=== PATIENT | female | born 1970 | race Two or more races ===

== ENCOUNTER 2017-12-02 00:54 | Emergency (ER) | payer MEDICAID ==
[~2017-12-02] VITALS: Ht 152.4 cm; Wt 70.3 kg
[~2017-12-02 00:54] MED LIST: CIPROFLOXACIN500 M2 ORAL; NAPROSYN500 M1 ORAL; NITROFURANTOIN100 M2 ORAL; NKM; ONDANSETRON ODT4 MG ORAL; PHENAZOPYRIDIN100 MG ORAL
[2017-12-02] MEDS ORDERED: Phenazopyridine 200mg tab ORAL ONE (01:45)
[2017-12-02 02:01] LABS: BILIRUBIN, URINE NEGATIVE (NEGATIVE); GLUCOSE, URINE (UA) NEGATIVE (NEGATIVE); KETONES,URINE NEGATIVE (NEGATIVE); LEUKOCYTE ESTERASE ,URINE 1+ (NEGATIVE); NITRITE,URINE NEGATIVE (NEGATIVE); PH,URINE 5 (4.5-8.0); PROTEIN,URINE 2+ (NEGATIVE); UROBILINOGEN,URINE NORMAL MG/DL (0.0-1.0)
[2017-12-02 02:18] LABS: APPEARANCE,URINE SLIGHTLY CLOUDY; COLOR,URINE YELLOW
[2017-12-02] MEDS ORDERED: CEPHALEXIN500 MG ORAL (02:22)
[2017-12-02] MEDS ORDERED: PHENAZOPYRIDIN200 MG ORAL (02:23)
[2017-12-02] MEDS ORDERED: Cephalexin 500mg cap ORAL ONE (02:30)
[2017-12-02 02:39] VITALS: BP 123/69
--- NOTE | 2017-12-02 04:30 | Emergency Room Report ---
History of Present Illness General Chief Complaint: Female Urogenital Problems Source: Patient Present Illness HPI Patient is a 47-year-old female presented after increased frequency of urination. Patient gradual onset of symptoms. She reports having increased discomfort to the lower abdomen. She denies any flank pain or vomiting. The patient had onset of symptoms for one day. She reports being on her menses. She denies any severe pain at this time. She states that she's had previous history of urinary infections. Denies any vaginal discharge. Allergies: Coded Allergies: No Known Allergies (Unverified , 10/13/13) Patient History Past Medical History: see triage record Last Menstrual Period: 11/30/17 Now: No Reviewed Nursing Documentation: PMH: Agreed; PSxH: Agreed Nursing Documentation-PMH Past Medical History: No History, Except For Hx Gastrointestinal Problems: No - Kidney stones Review of Systems All Other Systems: negative except mentioned in HPI Physical Exam Vital Signs Date Time Temp Pulse Resp B/P (MAP) Pulse Ox O2 Delivery O2 Flow Rate FiO2 12/02/17 01:07 98.4 84 16 123/69 98 Room Air 98.4 Sp02 EP Interpretation: reviewed, normal General Appearance: normal inspection, well appearing, no apparent distress, alert, GCS 15 Head: atraumatic ENT: normal ENT inspection, hearing grossly normal, normal voice Neck: normal inspection, full range of motion, supple, no bony tend Respiratory: normal inspection, lungs clear, normal breath sounds, no respiratory distress, no retraction, no wheezing Cardiovascular #1: regular rate, rhythm, no edema Gastrointestinal: normal inspection, normal bowel sounds, non tender, soft, no guarding, no hernia Genitourinary: no CVA tenderness Musculoskeletal: normal inspection, back normal, normal range of motion Neurologic: normal inspection, alert, responsive, speech normal Psychiatric: normal inspection, judgement/insight normal, mood/affect normal Skin: normal inspection, normal color, no rash Medical Decision Making Diagnostic Impression: Primary Impression: UTI ER Course Patient presented for dysuria. Differential diagnosis included was not limited to appendicitis, urinary tract infection, pelvic inflammatory disease, urethritis, herpes among others.Because of complexity of patient's case laboratory testing and imaging studies were ordered. The patient was given oral antibiotics emergency department. The patient is advised to follow up with primary care doctor in 1-2 days. Patient is advised to return if any worsening condition or if any changes in status that are concerning. This report is dictated with [employer] lead man over all dies in pattern shop software which may occasionally lead to discrepancies related to use of this software. Labs Test 12/02/17 01:17 Urine Color Yellow Urine Appearance Slightly cloudy Urine pH 5 (4.5-8.0) Urine Specific [place] 1.025 (1.005-1.035) Urine Protein 2+ (NEGATIVE) Urine Glucose (UA) Negative (NEGATIVE) Urine Ketones Negative (NEGATIVE) Urine Occult Blood 5+ (NEGATIVE) Urine Nitrite Negative (NEGATIVE) Urine Bilirubin Negative (NEGATIVE) Urine Urobilinogen Normal MG/DL (0.0-1.0) Urine Leukocyte Esterase 1+ (NEGATIVE) Urine RBC 20-30 /HPF (0 - 2) Urine WBC 2-4 /HPF (0 - 2) Urine Squamous Epithelial Cells Many /LPF (NONE/OCC) Urine Calcium Oxalate Crystals Many /LPF (NONE) Urine Bacteria Few /HPF (NONE) Urine HCG, Qualitative Negative (NEGATIVE) Last Vital Signs Date Time Temp Pulse Resp B/P (MAP) Pulse Ox O2 Delivery O2 Flow Rate FiO2 12/02/17 02:39 98.4 16 123/69 98 Room Air 98.4 12/02/17 01:07 84 Status: improved Disposition: HOME, SELF-CARE Condition: Stable Scripts Phenazopyridine Hcl* (PYRIDIUM*) 200 Mg Tablet 200 MG ORAL THREE TIMES A DAY, #14 TAB 0 Refills Prov: Neeraj Cavralho MD 12/02/17 Cephalexin* (KEFLEX*) 500 Mg Capsule 500 MG ORAL EVERY 6 HOURS, #28 CAP Prov: Neeraj Carvalho MD 12/02/17 Referrals: [facility],REFERR[facility] (PCP) Patient Instructions: Urinary Tract Infection Neeraj Carvalho MD Dec 02, 2017 04:30
== END 2017-12-02 02:40 | disposition home or self-care (01) ==
LOC: EMR 01:40
DX: N39.0 Urinary tract infection, site not specified (principal)
CPT/HCPCS: 81003; 81025; 99284

== ENCOUNTER 2018-06-21 09:53 | Emergency (ER) | payer MEDICAID ==
[~2018-06-21] VITALS: Ht 154.9 cm; Wt 72.6 kg
[~2018-06-21 09:53] MED LIST changes: +CEPHALEXIN500 MG ORAL; +PHENAZOPYRIDIN200 MG ORAL
[2018-06-21 10:00] VITALS: BP 124/74
--- NOTE | 2018-06-21 10:00 | NUR ---
ED Nurse Note: PT WALKED IN TO ER TODAY FROM HOME. AOX4. PT C/O EAR PAIN X 1 WEEK AND SAW HER PMD WHO TOLD HER SHE HAS AN EAR INFECTION AND GAVE HER A RX FOR AUMENTIN WHICH PT HAS BEEN TAKING. PT ONGOING EAR PAIN, 09/13, DESPITE BEING COMPLIANT WITH ABX REGIMEN. PT DENIES ANY DISCHARGE OR CHANGES IN HEARING.
[2018-06-21] MEDS ORDERED: DEBROX15 M1 BOTH EARS (10:17)
[2018-06-21 10:26] VITALS: BP 126/72
--- NOTE | 2018-06-21 10:27 | NUR ---
ED Nurse Note: PT SITTING PEACEFULLY IN BED IN NAD. AOX4. PRESCRIPTION AND DISCHARGE PAPERWORK EXPLAINED TO PT. PT VERBALIZES UNDERSTANDING AND DENIES ANY QUESTIONS AT THIS TIME. PRESCRIPTION AND DISCHARGE PAPERWORK GIVEN TO PT AND ID WRISTBAND REMOVED. PT WALKED OUT OF ER WITH STEADY GAIT AND ALL BELONGINGS.
--- NOTE | 2018-06-24 01:31 | Emergency Room Report ---
History of Present Illness General Chief Complaint: Earache Source: Patient Present Illness HPI 47-year-old female presents ED for evaluation. Complaining of right ear pain. Has been going on for 2 weeks. Was initially started on amoxicillin by her PMD but states it was not working so she was started on Augmentin a few days ago. States she is still having some pain. Dull, 5 out of 10, nonradiating. Denies fevers or chills. Denies cough. Denies sore throat. No other aggravating relieving factors. Denies any other associated symptoms Allergies: Coded Allergies: FERROUS SULFATE (Verified Allergy, Unknown, Itching, 06/21/18) Patient History Past Medical History: none Past Surgical History: none Pertinent Family History: none Social History: Denies: smoking, alcohol use, drug use Last Menstrual Period: Now: No : 1 Para: 0 Immunizations: UTD Reviewed Nursing Documentation: PMH: Agreed; PSxH: Agreed Nursing Documentation-PMH Past Medical History: No History, Except For Hx Gastrointestinal Problems: No - Kidney stones Review of Systems All Other Systems: negative except mentioned in HPI Physical Exam Vital Signs Date Time Temp Pulse Resp B/P (MAP) Pulse Ox O2 Delivery O2 Flow Rate FiO2 06/21/18 09:57 98.1 80 18 126/73 97 Room Air Sp02 EP Interpretation: reviewed, normal General Appearance: no apparent distress, alert, GCS 15, non-toxic Head: normocephalic Eyes: bilateral eye normal inspection, bilateral eye PERRL ENT: hearing grossly normal, normal pharynx, no angioedema, normal voice, other - cerumen impaction bilateral TM Neck: full range of motion, supple, no meningismus, supple/symm/no masses Respiratory: normal inspection Cardiovascular #1: normal inspection Gastrointestinal: normal inspection Rectal: deferred Genitourinary: no CVA tenderness Musculoskeletal: normal inspection Neurologic: alert, oriented x3, responsive, motor strength/tone normal, sensory intact, speech normal Psychiatric: normal inspection Skin: normal inspection Lymphatic: normal inspection Medical Decision Making Diagnostic Impression: Primary Impression: Ear pain Qualified Codes: H92.01 - Otalgia, right ear Additional Impression: Cerumen impaction Qualified Codes: H61.23 - Impacted cerumen, bilateral ER Course Hospital Course 47-year-old F presents to ED with pain R ear. no fever. Differential diagnoses include: TM perforation, otitis externa, otitis media Clinical course Patient placed on stretcher. After initial history, physical exam reveals a female in no acute distress. There is significant cerumen impaction in both ears. Unable to adequately visualize TM. Remainder physical exam unremarkable Discussed findings with patient. We will prescribe Debrox. Encouraged patient to continue her Augmentin prescription as directed. She'll follow-up with her PMD Diagnosis - ear pain, cerumen impaction Stable and discharged to home with Rx Carbamide peroxide. continue augmentin as directed. Followup with PMD. Return to ED if symptoms recur or worsen Last Vital Signs Date Time Temp Pulse Resp B/P (MAP) Pulse Ox O2 Delivery O2 Flow Rate FiO2 06/21/18 10:26 98.4 74 17 126/72 99 Room Air Status: improved Disposition: HOME, SELF-CARE Condition: Stable Scripts Carbamide Peroxide (DEBROX) 15 Ml Drops 5 DROP BOTH EARS TWICE A DAY for 4 Days, ML 0 Refills Prov: Jose Gomez MD 06/21/18 Referrals: NON PHYSICIAN (PCP) Patient Instructions: Cerumen Impaction Jose Gomez MD Jun 24, 2018 01:31
== END 2018-06-21 10:55 | disposition home or self-care (01) ==
LOC: EMR 10:55
DX: H92.01 Otalgia, right ear (principal); H61.23 Impacted cerumen, bilateral; Z88.2 Allergy status to sulfonamides
CPT/HCPCS: 99282

== ENCOUNTER 2018-06-27 11:39 | Emergency (ER) | payer MEDICAID ==
[~2018-06-27] VITALS: Ht 154.9 cm; Wt 72.6 kg
[~2018-06-27 11:39] MED LIST changes: +DEBROX15 M1 BOTH EARS
[2018-06-27] MEDS ORDERED: VITAMIN D400 INTLU ORAL (11:49)
--- NOTE | 2018-06-27 11:53 | NUR ---
ED Nurse Note: Pt came into the ER w/ complaints of right earache x 15 days. Rating the pain a 5/10. Non radiating. Pt states that she went to the ER last week and was given eardrops for the wax in her bilateral ears. Pt was also on amoxicillin x 10 days due to the earache. Finished the course of atb yesterday. A + O x4. Ambulatory. Skin warm to touch.
[2018-06-27 11:55] VITALS: BP 125/81
--- NOTE | 2018-06-27 12:31 | Emergency Room Report ---
History of Present Illness General Chief Complaint: Earache Present Illness HPI 47-year-old female patient presents the ER complaining of right-sided ear pain secondary to cerumen impaction for the past 2 weeks. Patient reports that she was previously seen here at this ER and by her primary care provider. States she was previously prescribed antibiotics which she took to completion however still expressing ear pain symptoms. Reports that previous visit here to this ER she was given Debrox however she was not able to effectively use and still has cerumen in her ears. Requesting cerumen removal at this time. Denies fever , chest pain, shortness of breath. Denies other acute symptoms. Denies other aggravating or relieving symptoms. Allergies: Coded Allergies: FERROUS SULFATE (Verified Allergy, Unknown, Itching, 06/21/18) Patient History Past Medical History: see triage record Last Menstrual Period: 06/22/18 Now: No Reviewed Nursing Documentation: PMH: Agreed; PSxH: Agreed Nursing Documentation-PMH Hx Gastrointestinal Problems: No - Kidney stones Review of Systems All Other Systems: negative except mentioned in HPI Physical Exam Vital Signs Date Time Temp Pulse Resp B/P (MAP) Pulse Ox O2 Delivery O2 Flow Rate FiO2 06/27/18 11:45 99.0 76 20 129/80 95 Room Air Sp02 EP Interpretation: reviewed, normal General Appearance: well appearing, no apparent distress, alert, GCS 15, non- toxic Head: normocephalic, atraumatic Eyes: bilateral eye normal inspection, bilateral eye PERRL ENT: hearing grossly normal, normal pharynx, no angioedema, normal voice, TMs + canals normal, uvula midline, moist mucus membranes, other - Cerumen impaction bilaterally Neck: full range of motion Respiratory: lungs clear, normal breath sounds, no rhonchi, no respiratory distress, no accessory muscle use, no wheezing, speaking full sentences Cardiovascular #1: regular rate, rhythm, no edema Musculoskeletal: back normal, digits/nails normal, gait/station normal, normal range of motion, non-tender Neurologic: alert, oriented x3, responsive, motor strength/tone normal, sensory intact Skin: no rash Medical Decision Making PA Attestation Dr. Guzman is my supervising Physician whom patient management has been discussed with. Diagnostic Impression: Primary Impression: Cerumen impaction ER Course Pt presents to ED c/o ear pain. DDX considered but are not limited to rhinitis, sinusitis, otitis media, otitis externa, cerumen impaction. VITAL SIGNS are WNL, patient is afebrile. Ordered hydrogen peroxide. ED INTERVENTIONS: PE shows impacted cerumen in ear. No mastoid swelling or erythema, no rash or vesicles on face. Patient ear cleaned and flushed with saline and hydrogen peroxide. followup exam shows no TM erythema, edema or effusion, TM intact. Patient reports symptoms improved. Patient instructed not to use Q-tips. Follow-up with primary care provider for further treatment and referral. Discuss referral to ENT. Continue to use Debrox. DISCHARGE: At this time pt is stable for d/c to home. patient resting comfortably, no acute distress, nontoxic appearing, talking without difficulty, smiling. Patient to take medications as instructed Will provide with patient care instructions and any necessary prescriptions. Care plan and follow-up instructions provided. Patient instructed to follow-up with primary care in 3 - 5 days. Patient questions asked and answered. patient reports understanding and agreement treatment plan. ER precautions given. Patient instructed to return to ER immediately for any new or worsening of symptoms including but not limited to increasing SOB, persistent fever. - Please note that this Emergency Department Report was dictated using [employer] technology software, occasionally this can lead to erroneous entry secondary to interpretation by the dictation equipment. Last Vital Signs Date Time Temp Pulse Resp B/P (MAP) Pulse Ox O2 Delivery O2 Flow Rate FiO2 06/27/18 11:55 98.7 86 19 125/81 96 Room Air Status: improved Disposition: HOME, SELF-CARE Condition: Stable Patient Instructions: Cerumen Impaction Additional Instructions: Followup with primary care provider in 3 -5 days. Request referral to ENT. Avoid swimming, does not use Q-tips in ear. Take medications as directed. Patient questions asked and answered. ER precautions given, patient instructed to return to ER immediately for any new or worsening of symptoms. Ang Case Jun 27, 2018 12:31
--- NOTE | 2018-06-27 13:18 | NUR ---
ED Nurse Note: Discharge instructions given to pt. Answered all questions. Verbalized understanding. No acute distress noted. ID band removed. Left ER w/ steady gait and all belongings.
[2018-06-27 13:33] VITALS: BP 120/81
[2018-10-28] MEDS ORDERED: FLUCONAZOLE100 MG ORAL (16:47)
[2018-10-28] MEDS ORDERED: CEPHALEXIN500 MG ORAL (20:13)
[2018-10-28] MEDS ORDERED: ONDANSETRON ODT4 MG BC (20:13)
[2018-10-28] MEDS ORDERED: ACETAMINOPHEN-1 EAC1 ORAL (20:13)
== END 2018-06-27 13:18 | disposition home or self-care (01) ==
LOC: EMR 12:42
DX: H61.21 Impacted cerumen, right ear (principal)
CPT/HCPCS: 99282

== ENCOUNTER 2018-07-02 12:02 | Emergency (ER) | payer MEDICAID ==
[~2018-07-02] VITALS: Ht 152.4 cm; Wt 68.0 kg
[~2018-07-02 12:02] MED LIST changes: +VITAMIN D400 INTLU ORAL
[2018-07-02 12:33] VITALS: BP 130/82
--- NOTE | 2018-07-02 12:35 | NUR ---
ED Nurse Note: pt walked in to ED due to right earache for last 20 days. per pt, no discharge or local fever, just pain. seen by multiple different drs. seen by ENT dr on last Wed and on cipro and ibuprofen. but sx gets worse. AAO x4. respirations even and non-labored noted. skin warm to touch. no open wound noted. will wait for the further order.
[2018-07-02] MEDS ORDERED: MEDROL DOSEPAK4 MG ORAL (12:48)
--- NOTE | 2018-07-02 12:48 | Emergency Room Report ---
History of Present Illness General Chief Complaint: Earache Source: Patient Present Illness HPI 47-year-old female with no significant past medical history here complaining of 3 weeks of right ER pain already treated by ENT. Patient reports that her ENT first started her on Augmentin which was ineffective then started her on Cipro and ibuprofen however she reports that the pain has not improved. Patient does not know the correct diagnosis of her inner ear abnormality. Denies sore throat , congestion, cough, fever and chills. Patient is rating the pain intermittent and 5 out of 10 with no radiation. Denies headache and dizziness denies vertigo. Patient has another appointment with ENT next week denies discharge from the ER denies hearing loss Allergies: Coded Allergies: FERROUS SULFATE (Verified Allergy, Unknown, Itching, 06/21/18) Patient History Past Medical History: see triage record Past Surgical History: unable to obtain Pertinent Family History: none Last Menstrual Period: 06/27/18 Now: No Immunizations: UTD Reviewed Nursing Documentation: PMH: Agreed; PSxH: Agreed Nursing Documentation-PMH Past Medical History: No Stated History Hx Gastrointestinal Problems: No - Kidney stones Review of Systems All Other Systems: negative except mentioned in HPI Physical Exam Vital Signs Date Time Temp Pulse Resp B/P (MAP) Pulse Ox O2 Delivery O2 Flow Rate FiO2 07/02/18 12:33 99.0 77 18 130/82 96 Room Air Sp02 EP Interpretation: reviewed, normal General Appearance: normal inspection, well appearing, no apparent distress Head: normocephalic, atraumatic Eyes: bilateral eye normal inspection, bilateral eye PERRL ENT: hearing grossly normal, normal pharynx, no angioedema, normal voice, TMs + canals normal, other - tragus and devonte not TTP Neck: normal inspection, full range of motion, supple Respiratory: normal inspection, lungs clear, no rhonchi Cardiovascular #1: normal inspection, regular rate, rhythm, no murmur Gastrointestinal: normal inspection, soft, no mass Rectal: deferred Genitourinary: deferred Musculoskeletal: normal inspection, back normal, digits/nails normal Neurologic: normal inspection, alert Psychiatric: normal inspection, judgement/insight normal Skin: normal inspection, normal color, no rash Lymphatic: normal inspection, no adenopathy Medical Decision Making PA Attestation all diagnoses and treatment plans were reviewed and discussed by supervising physician Dr. sherman Diagnostic Impression: Primary Impression: Otalgia of right ear ER Course 47-year-old female with no significant past medical history here complaining of 3 weeks of right ER pain already treated by ENT. Patient reports that her ENT first started her on Augmentin which was ineffective then started her on Cipro and ibuprofen however she reports that the pain has not improved. Patient does not know the correct diagnosis of her inner ear abnormality. Denies sore throat , congestion, cough, fever and chills. Patient is rating the pain intermittent and 5 out of 10 with no radiation. Denies headache and dizziness denies vertigo. Patient has another appointment with ENT next week denies discharge from the ER denies hearing loss Ddx considered but are not limited to otitis media, otitis externa, otalgia of unknown origin, mastoiditis Vital signs: are WNL, pt. is afebrile H&PE are most consistent with otalgia of unknown origin of right ear no mastoiditis noted and no tenderness to palpation of the mastoid process ORDERS: Medrol Dosepak ED INTERVENTIONS: None required at this time. DISCHARGE: At this time pt. is stable for d/c to home. Will provide printed patient care instructions, and any necessary prescriptions. Care plan and follow up instructions have been discussed with the patient prior to discharge. continue finishing her ciprofloxacin and ibuprofen follow with urinalysis with . take steroids as directed and will help with inflammation and pain Last Vital Signs Date Time Temp Pulse Resp B/P (MAP) Pulse Ox O2 Delivery O2 Flow Rate FiO2 07/02/18 12:33 99.0 77 18 130/82 96 Room Air Disposition: HOME, SELF-CARE Condition: Stable Scripts Methylprednisolone (Methylprednisolone*) 4MG Dspk 4 MG ORAL DIRECTED for 6 Days, #21 EA 0 Refills Day 1: Two tablets before breakfast, one after lunch, one after dinner, and two at bedtime. If started late in the day, take all six tablets at once or divide into two or three doses, unless otherwise directed by prescriber. Day 2: One tablet before breakfast, one after lunch, one after dinner, and two at bedtime Day 3: One tablet before breakfast, one after lunch, one after dinner, and one at bedtime Day 4: One tablet before breakfast, one after lunch, and one at bedtime Day 5: One tablet before breakfast and one at bedtime Day 6: One tablet before breakfast Prov: Betty Brar 07/02/18 Patient Instructions: Earache Additional Instructions: U have a chronic earache that needs to be further worked up bywith Dr. continue taking ciprofloxacin as it was probably prescribed by your urinalysis with doctor and take ibuprofen for pain take steroids as direct Betty Brar Jul 02, 2018 12:48
[2018-07-02 13:01] VITALS: BP 130/82
--- NOTE | 2018-07-02 13:01 | NUR ---
ED Nurse Note: Patient is being discharged from medical care with prescription. Awake, alert and oriented x4. ID band were removed. Patient ambulated out with all personal belongings with steady gait.
== END 2018-07-02 13:01 | disposition home or self-care (01) ==
LOC: EMR 12:40
DX: H92.01 Otalgia, right ear (principal)
CPT/HCPCS: 99282

== ENCOUNTER 2018-09-03 01:51 | Emergency (ER) | payer MEDICAID ==
[~2018-09-03] VITALS: Ht 154.9 cm; Wt 72.6 kg
[~2018-09-03 01:51] MED LIST changes: +MEDROL DOSEPAK4 MG ORAL
--- NOTE | 2018-09-03 02:05 | NUR ---
ED Nurse Note: urine collected; sent down to lab.
--- NOTE | 2018-09-03 02:13 | NUR ---
ED Nurse Note: Pain meds given as ordered.
[2018-09-03] MEDS ORDERED: Ketorolac 30mg Inj IM ONE (02:15)
[2018-09-03 02:40] VITALS: BP 131/76
--- NOTE | 2018-09-03 02:40 | NUR ---
ED Nurse Note: Pt arrived ED from Home, c/o Left flank pain 01/13 today. Pt is A/O X4. Vital signs stable at this time, waitng for orders.
[2018-09-03 02:56] LABS: APPEARANCE,URINE CLOUDY; BILIRUBIN, URINE NEGATIVE (NEGATIVE); COLOR,URINE YELLOW; GLUCOSE, URINE (UA) NEGATIVE (NEGATIVE); KETONES,URINE 2+ (NEGATIVE); LEUKOCYTE ESTERASE ,URINE 1+ (NEGATIVE); NITRITE,URINE NEGATIVE (NEGATIVE); PH,URINE 5 (4.5-8.0); PROTEIN,URINE 3+ (NEGATIVE); UROBILINOGEN,URINE NORMAL MG/DL (0.0-1.0)
[2018-09-03 03:16] LABS: BASOPHILS % (AUTO) 0.7 % (0.0-2.0); HEMATOCRIT 38.7 % (37.0-47.0); LYMPHOCYTES % (AUTO) 14.8 % (20.0-45.0); MEAN CORPUSCULAR VOLUME 89 FL (80-99); MONOCYTES % (AUTO) 5.1 % (1.0-10.0); NEUTROPHILS % (AUTO) 78.4 % (45.0-75.0); PLATELET COUNT 318 K/UL (150-450); RED BLOOD COUNT 4.37 M/UL (4.20-5.40); RED CELL DISTRIBUTION WIDTH 12.8 % (11.6-14.8); WHITE BLOOD COUNT 12.8 K/UL (4.8-10.8)
[2018-09-03 03:29] LABS: ANION GAP 12 mmol/L (5-15); BLOOD UREA NITROGEN 10 mg/dL (7-18); CARBON DIOXIDE 22 MMOL/L (21-32); CHLORIDE 102 MMOL/L (98-107); CREATININE 0.9 MG/DL (0.55-1.30); POTASSIUM 4.3 MMOL/L (3.5-5.1); SODIUM 136 MMOL/L (136-145)
[2018-09-03 03:34] LABS: ALANINE AMINOTRANSFERASE 22 U/L (12-78); ALBUMIN 3.8 G/DL (3.4-5.0); ALBUMIN/GLOBULIN RATIO 1.1 (1.0-2.7); ALKALINE PHOSPHATASE 69 U/L (46-116); ASPARTATE AMINO TRANSFERASE 14 U/L (15-37); BILIRUBIN,TOTAL 0.2 MG/DL (0.2-1.0)
--- NOTE | 2018-09-03 04:21 | Emergency Room Report ---
History of Present Illness General Chief Complaint: Female Urogenital Problems Source: Patient Present Illness HPI 48-year-old female presents ED for evaluation. Complaining of left flank pain and dysuria. Started 4 hours ago. Pain is throbbing, 9 out of 10, radiating towards the groin. States she has history of kidney stone many years ago. Denies fevers or chills. Denies nausea or vomiting. No other aggravating relieving factors. Denies any other associated symptoms Allergies: Coded Allergies: FERROUS SULFATE (Verified Allergy, Unknown, Itching, 06/21/18) Patient History Past Medical History: none Past Surgical History: none Pertinent Family History: none Social History: Denies: smoking, alcohol use, drug use Last Menstrual Period: 08/25/18 Now: No Immunizations: UTD Reviewed Nursing Documentation: PMH: Agreed; PSxH: Agreed Nursing Documentation-PMH Past Medical History: No History, Except For Hx Gastrointestinal Problems: No - Kidney stones Review of Systems All Other Systems: negative except mentioned in HPI Physical Exam Vital Signs Date Time Temp Pulse Resp B/P (MAP) Pulse Ox O2 Delivery O2 Flow Rate FiO2 09/03/18 01:55 97.7 84 22 132/77 98 Room Air Sp02 EP Interpretation: reviewed, normal General Appearance: no apparent distress, alert, GCS 15, non-toxic Head: normocephalic, atraumatic Eyes: bilateral eye normal inspection, bilateral eye PERRL ENT: hearing grossly normal, normal pharynx, no angioedema, normal voice Neck: full range of motion, supple/symm/no masses Respiratory: chest non-tender, lungs clear, normal breath sounds, speaking full sentences Cardiovascular #1: regular rate, rhythm, no edema Cardiovascular #2: 2+ carotid (R), 2+ carotid (L), 2+ radial (R), 2+ radial (L) , 2+ dorsalis pedis (R), 2+ dorsalis pedis (L) Gastrointestinal: normal bowel sounds, non tender, soft, non-distended, no guarding, no rebound Rectal: deferred Genitourinary: normal inspection, CVA tenderness (L) Musculoskeletal: back normal, gait/station normal, normal range of motion, non- tender Neurologic: alert, oriented x3, responsive, motor strength/tone normal, sensory intact, speech normal Psychiatric: judgement/insight normal, memory normal, mood/affect normal, no suicidal/homicidal ideation Reflexes: 3+ bicep (R), 3+ bicep (L), 3+ tricep (R), 3+ tricep (L), 3+ knee (R) , 3+ knee (L) Skin: normal color, no rash, warm/dry, well hydrated Lymphatic: no adenopathy Medical Decision Making Diagnostic Impression: Primary Impression: kidney stones ER Course Hospital Course 48 yo F presents to ED c/o L flank pain. h/o kidney stones Differential diagnosis includes-appendicitis, cholecystitis, kidney stone, pyelonephritis Clinical course Patient placed on stretcher. After initial history and physical I ordered labs , IV fluids, pain medications and CT scan Labs - minimal leukocytosis, electrolytes ok, LFTs normal, UA + bacteria + blood CT scan shows 7mm stone in L ureter with hydronephrisis/hydroureter (STATRAD reading says R sided stone) Upon reassessment, patient states pain has improved. Discussed findings with urology Dr. Holland. Given no creatinine elevation, patient appears nontoxic and pain is well controlled with Toradol he believes patient can be discharged to home at this time Recommends discharge with appropriate analgesics, antibiotics, Flomax. He will follow-up patient as outpatient Rocephin in ED. Discussed findings with patient. She agrees with plan I feel this is a highly complex case requiring extensive working including EKG/ Rhythm strip, Xray/CT/US, Blood/urine lab work, repeat exams while in ED, and administration of strong opiates/narcotics for pain control, admission to hospital or close patient follow up. Diagnosis - kidney stone Stable and discharged to home with Rx Motrin, [place], Flomax, keflex. Followup with PMD/urology. Return to ED if symptoms recur or worsen Labs Test 09/03/18 02:05 09/03/18 02:45 09/03/18 03:08 Urine HCG, Qualitative Negative (NEGATIVE) Urine Color Yellow Urine Appearance Cloudy Urine pH 5 (4.5-8.0) Urine Specific [place] 1.030 (1.005-1.035) Urine Protein 3+ (NEGATIVE) Urine Glucose (UA) Negative (NEGATIVE) Urine Ketones 2+ (NEGATIVE) Urine Blood 5+ (NEGATIVE) Urine Nitrite Negative (NEGATIVE) Urine Bilirubin Negative (NEGATIVE) Urine Urobilinogen Normal MG/DL (0.0-1.0) Urine Leukocyte Esterase 1+ (NEGATIVE) Urine RBC 5-10 /HPF (0 - 2) Urine WBC 2-4 /HPF (0 - 2) Urine Squamous Epithelial Cells Few /LPF (NONE/OCC) Urine Amorphous Sediment Many /LPF (NONE) Urine Bacteria Moderate /HPF (NONE) White Blood Count 12.8 K/UL (4.8-10.8) Red Blood Count 4.37 M/UL (4.20-5.40) Hemoglobin 13.0 G/DL (12.0-16.0) Hematocrit 38.7 % (37.0-47.0) Mean Corpuscular Volume 89 FL (80-99) Mean Corpuscular Hemoglobin 29.6 PG (27.0-31.0) Mean Corpuscular Hemoglobin Concent 33.5 G/DL (32.0-36.0) Red Cell Distribution Width 12.8 % (11.6-14.8) Platelet Count 318 K/UL (150-450) Mean Platelet Volume 8.7 FL (6.5-10.1) Neutrophils (%) (Auto) 78.4 % (45.0-75.0) Lymphocytes (%) (Auto) 14.8 % (20.0-45.0) Monocytes (%) (Auto) 5.1 % (1.0-10.0) Eosinophils (%) (Auto) 1.0 % (0.0-3.0) Basophils (%) (Auto) 0.7 % (0.0-2.0) Sodium Level 136 MMOL/L (136-145) Potassium Level 4.3 MMOL/L (3.5-5.1) Chloride Level 102 MMOL/L (98-107) Carbon Dioxide Level 22 MMOL/L (21-32) Anion Gap 12 mmol/L (5-15) Blood Urea Nitrogen 10 mg/dL (7-18) Creatinine 0.9 MG/DL (0.55-1.30) Estimat Glomerular Filtration Rate > 60 mL/min (>60) Glucose Level 125 MG/DL (74-106) Calcium Level 9.0 MG/DL (8.5-10.1) Total Bilirubin 0.2 MG/DL (0.2-1.0) Aspartate Amino Transf (AST/SGOT) 14 U/L (15-37) Alanine Aminotransferase (ALT/SGPT) 22 U/L (12-78) Alkaline Phosphatase 69 U/L (46-116) Total Protein 7.2 G/DL (6.4-8.2) Albumin 3.8 G/DL (3.4-5.0) Globulin 3.4 g/dL Albumin/Globulin Ratio 1.1 (1.0-2.7) Lipase 168 U/L (73-393) CT/MRI/US Diagnostic Results CT/MRI/US Diagnostic Results : Imaging Test Ordered: CT A/P Impression A 7 mm calculus is seen in the proximal right ureter causing moderate right hydronephrosis. Last Vital Signs Date Time Temp Pulse Resp B/P (MAP) Pulse Ox O2 Delivery O2 Flow Rate FiO2 09/03/18 02:40 97.8 79 22 131/76 98 Room Air Status: improved Disposition: HOME, SELF-CARE Condition: Stable Scripts Tamsulosin HCl (Flomax) 0.4 Mg Cap.er.24h 0.4 MG ORAL DAILY for 10 Days, CAP Prov: Jose Gomez MD 09/03/18 Hydrocodone Bit/Acetaminophen 5-325* (NORCO 5-325*) 1 Each Tablet 1 TAB ORAL Q6H PRN for For Pain, #10 TAB 0 Refills Prov: Jose Gomez MD 09/03/18 Ibuprofen* (MOTRIN*) 600 Mg Tablet 600 MG ORAL Q8H PRN for For Pain, #30 TAB 0 Refills Prov: Jose Gomez MD 09/03/18 Cephalexin* (KEFLEX*) 500 Mg Capsule 500 MG ORAL EVERY 6 HOURS for 7 Days, CAP Prov: Jose Gomez MD 09/03/18 Referrals: NON PHYSICIAN (PCP) Jose Gomez MD Sep 03, 2018 04:21
--- NOTE | 2018-09-03 04:47 | Diagnostic Imaging Report ---
EXAM: CT Abdomen and Pelvis Without Intravenous Contrast CLINICAL HISTORY: FLANK TECHNIQUE: Axial computed tomography images of the abdomen and pelvis without intravenous contrast. CTDI is 15 mGy and DLP is 759 mGy-cm. One or more of the following dose reduction techniques were used: automated exposure control, adjustment of the mA and/or kV according to patient size, use of iterative reconstruction technique. COMPARISON: CT abdomen and pelvis dated 10/13/13. FINDINGS: Lung bases: Minimal bibasilar subsegmental atelectasis. No mass. No consolidation. Mediastinum: Small hiatal hernia. ABDOMEN: Liver: Unremarkable. Gallbladder and bile ducts: Unremarkable. No calcified stones. No ductal dilation. Pancreas: Unremarkable. No ductal dilation. Spleen: Unremarkable. No splenomegaly. Adrenals: Unremarkable. No mass. Kidneys and ureters: A 7 mm calculus is seen in the proximal right ureter causing moderate right hydronephrosis. This is a new finding. Stomach and bowel: Unremarkable. No obstruction. No mucosal thickening. PELVIS: Appendix: No findings to suggest acute appendicitis. Bladder: Unremarkable. No stones. Reproductive: The uterus is enlarged and lobular consistent with fibroids similar to the prior study. ABDOMEN and PELVIS: Intraperitoneal space: Unremarkable. No free air. No significant fluid collection. Bones/joints: No acute fracture. No dislocation. Soft tissues: Unremarkable. Vasculature: Unremarkable. No abdominal aortic aneurysm. Lymph nodes: Unremarkable. No enlarged lymph nodes. IMPRESSION: 1. Interval development of a 7 mm calculus in the proximal right ureter causing moderate right hydronephrosis. 2. Fibroid uterus.
[2018-09-03] MEDS ORDERED: cefTRIAXone 1 GM in NS 55 ML IVPB ONE (05:30)
[2018-09-03] MEDS ORDERED: IBUPROFEN600 MG ORAL (05:38)
[2018-09-03] MEDS ORDERED: NORCO 5-325 TA1 EACH ORAL (05:38)
[2018-09-03] MEDS ORDERED: FLOMAX0.4 MG ORAL (05:38)
[2018-09-03] MEDS ORDERED: CEPHALEXIN500 MG ORAL (05:38)
[2018-09-03 05:40] VITALS: BP 133/75
--- NOTE | 2018-09-03 05:40 | NUR ---
ER DISCHARGE NOTE: Patient is cleared to be discharged per Dr. Gomez. Pain Meds and Antibiotics given as ordered. Pt is A/Ox4 on room air with stable vital signs, pt was given dc and prescription instructions, pt was able to verbalize understanding, pt's IV and ID band removed. pt is able to ambulate with steady gait and pt took all belongings.
[2018-09-04] MEDS ORDERED: FLUCONAZOLE100 MG ORAL (00:48)
[2018-09-04] MEDS ORDERED: ONDANSETRON ODT4 MG BC (00:48)
== END 2018-09-03 05:40 | disposition home or self-care (01) ==
LOC: EMR 02:10
DX: N13.2 Hydronephrosis with renal and ureteral calculous obstruction (principal); D25.9 Leiomyoma of uterus, unspecified
CPT/HCPCS: 36415; 74176; 80053; 81003; 81025; 83690; 85025; 87086; 96361; 96365; 96372; 99284; J0696; J1885

== ENCOUNTER 2018-09-03 21:56 | Emergency (ER) | payer MEDICAID ==
[~2018-09-03] VITALS: Ht 154.9 cm; Wt 72.6 kg
[~2018-09-03 21:56] MED LIST changes: +FLOMAX0.4 MG ORAL; +IBUPROFEN600 MG ORAL; +NORCO 5-325 TA1 EACH ORAL
[2018-09-03 22:30] VITALS: BP 115/66
--- NOTE | 2018-09-03 22:30 | NUR ---
ED Nurse Note: pt walked in due to nausea and vomiting started 3 hours ago. pt stated she was seen in the ed earlier for kidney stones and was advised by pcp to go back to the ed when fever and pain persist. AO4. NAD. VSS
--- NOTE | 2018-09-03 23:15 | NUR ---
ED Nurse Note: IV access established. Blood and urine collected; sent down to lab.
[2018-09-03 23:56] LABS: BASOPHILS % (AUTO) 0.8 % (0.0-2.0); EOSINOPHILS % (AUTO) 1.1 % (0.0-3.0); HEMATOCRIT 35.5 % (37.0-47.0); HEMOGLOBIN 12.2 G/DL (12.0-16.0); LYMPHOCYTES % (AUTO) 14.3 % (20.0-45.0); MEAN CORPUSCULAR VOLUME 87 FL (80-99); MONOCYTES % (AUTO) 6.7 % (1.0-10.0); NEUTROPHILS % (AUTO) 77.1 % (45.0-75.0); PLATELET COUNT 258 K/UL (150-450); RED BLOOD COUNT 4.08 M/UL (4.20-5.40); RED CELL DISTRIBUTION WIDTH 12.6 % (11.6-14.8); WHITE BLOOD COUNT 10.3 K/UL (4.8-10.8)
[2018-09-03 23:57] LABS: BILIRUBIN, URINE NEGATIVE (NEGATIVE); COLOR,URINE PALE YELLOW; GLUCOSE, URINE (UA) NEGATIVE (NEGATIVE); KETONES,URINE 3+ (NEGATIVE); LEUKOCYTE ESTERASE ,URINE 1+ (NEGATIVE); NITRITE,URINE NEGATIVE (NEGATIVE); PH,URINE 5 (4.5-8.0); PROTEIN,URINE 2+ (NEGATIVE); UROBILINOGEN,URINE NORMAL MG/DL (0.0-1.0)
[2018-09-04 00:10] LABS: APPEARANCE,URINE SLIGHTLY CLOUDY
[2018-09-04 00:23] LABS: ANION GAP 12 mmol/L (5-15); BLOOD UREA NITROGEN 10 mg/dL (7-18); CALCIUM 9.1 MG/DL (8.5-10.1); CARBON DIOXIDE 23 MMOL/L (21-32); CHLORIDE 103 MMOL/L (98-107); CREATININE 1.3 MG/DL (0.55-1.30); POTASSIUM 3.9 MMOL/L (3.5-5.1); SODIUM 138 MMOL/L (136-145)
[2018-09-04 00:27] LABS: ALANINE AMINOTRANSFERASE 20 U/L (12-78); ALBUMIN 3.5 G/DL (3.4-5.0); ALBUMIN/GLOBULIN RATIO 1.1 (1.0-2.7); ALKALINE PHOSPHATASE 69 U/L (46-116); ASPARTATE AMINO TRANSFERASE 16 U/L (15-37); BILIRUBIN,TOTAL 0.2 MG/DL (0.2-1.0)
[2018-09-04 00:45] VITALS: BP 123/72
--- NOTE | 2018-09-04 00:45 | NUR ---
ER DISCHARGE NOTE: Patient is cleared to be discharged per ERMD, pt is aox4, on room air, with stable vital signs. pt was given dc and prescription instructions, pt was able to verbalize understanding, pt id band and iv site removed without complications. pt is able to ambulate with steady gait. pt took all belongings.
[2018-09-04] MEDS ORDERED: FLUCONAZOLE100 MG ORAL (00:48)
[2018-09-04] MEDS ORDERED: ONDANSETRON ODT4 MG BC (00:48)
--- NOTE | 2018-09-04 04:26 | Emergency Room Report ---
History of Present Illness General Chief Complaint: Vomiting Source: Patient Present Illness HPI 48-year-old female presents ED for evaluation. Complaining of nausea and vomiting which started tonight. States that she was seen here last night and noted to have kidney stones. Was subsequently treated and discharged with pain meds, antibiotics. States she's been compliant with medications but states she developed nausea and vomiting tonight. Denies fevers or chills. Denies pain. Denies dysuria or hematuria. No other aggravating relieving factors. Denies any other associated symptoms Allergies: Coded Allergies: FERROUS SULFATE (Verified Allergy, Unknown, Itching, 06/21/18) Patient History Past Medical History: other - Kidney stone Past Surgical History: none Pertinent Family History: none Social History: Denies: smoking, alcohol use, drug use Last Menstrual Period: august Now: No Immunizations: UTD Reviewed Nursing Documentation: PMH: Agreed; PSxH: Agreed Nursing Documentation-PMH Hx Gastrointestinal Problems: No - Kidney stones Review of Systems All Other Systems: negative except mentioned in HPI Physical Exam Vital Signs Date Time Temp Pulse Resp B/P (MAP) Pulse Ox O2 Delivery O2 Flow Rate FiO2 09/03/18 22:27 98.8 82 16 115/66 95 Room Air Sp02 EP Interpretation: reviewed, normal General Appearance: no apparent distress, alert, GCS 15, non-toxic Head: normocephalic, atraumatic Eyes: bilateral eye normal inspection, bilateral eye PERRL ENT: hearing grossly normal, normal pharynx, no angioedema, normal voice Neck: full range of motion, supple/symm/no masses Respiratory: chest non-tender, lungs clear, normal breath sounds, speaking full sentences Cardiovascular #1: regular rate, rhythm, no edema Cardiovascular #2: 2+ carotid (R), 2+ carotid (L), 2+ radial (R), 2+ radial (L) , 2+ dorsalis pedis (R), 2+ dorsalis pedis (L) Gastrointestinal: normal bowel sounds, non tender, soft, non-distended, no guarding, no rebound Rectal: deferred Genitourinary: normal inspection, no CVA tenderness Musculoskeletal: back normal, gait/station normal, normal range of motion, non- tender Neurologic: alert, oriented x3, responsive, motor strength/tone normal, sensory intact, speech normal Psychiatric: judgement/insight normal, memory normal, mood/affect normal, no suicidal/homicidal ideation Reflexes: 3+ bicep (R), 3+ bicep (L), 3+ tricep (R), 3+ tricep (L), 3+ knee (R) , 3+ knee (L) Skin: normal color, no rash, warm/dry, well hydrated Lymphatic: no adenopathy Medical Decision Making Diagnostic Impression: Primary Impression: kidney stones Additional Impression: nausea and vomiting ER Course Hospital Course 48 yo F present to ED with nausea and vomiting. seen last night for kidney stones Differential diagnosis includes-appendicitis, cholecystitis, kidney stone, pyelonephritis Clinical course Patient placed on stretcher. After initial history and physical I ordered labs , IV fluids, zofran Labs - no leukocytosis, electrolytes ok, LFTs normal, UA - hematuria, no UTI I saw patient last night. Patient had CT which showed 7 mm stone with minimal hydronephrosis. Patient had minimal leukocytosis. Pain was well controlled with Toradol. After discussion with urology decision was made to discharge patient Patient did not have nausea or vomiting yesterday, I did not prescribe Zofran. Patient denies any pain today. States her nausea is well controlled after 1 dose of Zofran. Labs are overall improved Do not see reason for admission at this time. Patient agrees. Plan will be to follow-up with urology as outpatient; I provided referrals yesterday. We'll prescribe Zofran I feel this is a highly complex case requiring extensive working including EKG/ Rhythm strip, Xray/CT/US, Blood/urine lab work, repeat exams while in ED, and administration of strong opiates/narcotics for pain control, admission to hospital or close patient follow up. Diagnosis - kidney stone, nausea and vomiting Stable and discharged to home with Rx zofran, diflucan. continue prior meds as directed. followup with urology. Return to ED if symptoms recur or worsen Labs Test 09/03/18 23:15 White Blood Count 10.3 K/UL (4.8-10.8) Red Blood Count 4.08 M/UL (4.20-5.40) Hemoglobin 12.2 G/DL (12.0-16.0) Hematocrit 35.5 % (37.0-47.0) Mean Corpuscular Volume 87 FL (80-99) Mean Corpuscular Hemoglobin 29.9 PG (27.0-31.0) Mean Corpuscular Hemoglobin Concent 34.3 G/DL (32.0-36.0) Red Cell Distribution Width 12.6 % (11.6-14.8) Platelet Count 258 K/UL (150-450) Mean Platelet Volume 8.1 FL (6.5-10.1) Neutrophils (%) (Auto) 77.1 % (45.0-75.0) Lymphocytes (%) (Auto) 14.3 % (20.0-45.0) Monocytes (%) (Auto) 6.7 % (1.0-10.0) Eosinophils (%) (Auto) 1.1 % (0.0-3.0) Basophils (%) (Auto) 0.8 % (0.0-2.0) Urine Color Pale yellow Urine Appearance Slightly cloudy Urine pH 5 (4.5-8.0) Urine Specific [place] 1.025 (1.005-1.035) Urine Protein 2+ (NEGATIVE) Urine Glucose (UA) Negative (NEGATIVE) Urine Ketones 3+ (NEGATIVE) Urine Blood 5+ (NEGATIVE) Urine Nitrite Negative (NEGATIVE) Urine Bilirubin Negative (NEGATIVE) Urine Urobilinogen Normal MG/DL (0.0-1.0) Urine Leukocyte Esterase 1+ (NEGATIVE) Urine RBC 5-10 /HPF (0 - 2) Urine WBC 2-4 /HPF (0 - 2) Urine Squamous Epithelial Cells Many /LPF (NONE/OCC) Urine Bacteria Many /HPF (NONE) Urine Yeast Many /HPF (NONE) Sodium Level 138 MMOL/L (136-145) Potassium Level 3.9 MMOL/L (3.5-5.1) Chloride Level 103 MMOL/L (98-107) Carbon Dioxide Level 23 MMOL/L (21-32) Anion Gap 12 mmol/L (5-15) Blood Urea Nitrogen 10 mg/dL (7-18) Creatinine 1.3 MG/DL (0.55-1.30) Estimat Glomerular Filtration Rate 43.7 mL/min (>60) Glucose Level 122 MG/DL (74-106) Calcium Level 9.1 MG/DL (8.5-10.1) Total Bilirubin 0.2 MG/DL (0.2-1.0) Aspartate Amino Transf (AST/SGOT) 16 U/L (15-37) Alanine Aminotransferase (ALT/SGPT) 20 U/L (12-78) Alkaline Phosphatase 69 U/L (46-116) Total Protein 6.7 G/DL (6.4-8.2) Albumin 3.5 G/DL (3.4-5.0) Globulin 3.2 g/dL Albumin/Globulin Ratio 1.1 (1.0-2.7) Lipase 127 U/L (73-393) Last Vital Signs Date Time Temp Pulse Resp B/P (MAP) Pulse Ox O2 Delivery O2 Flow Rate FiO2 09/04/18 00:45 98.8 78 16 123/72 100 Room Air Status: improved Disposition: HOME, SELF-CARE Condition: Improved Scripts Fluconazole (FLUCONAZOLE) 100 Mg Tablet 100 MG ORAL DAILY, #2 TAB 0 Refills Prov: Jose Gomez MD 09/04/18 Ondansetron Odt* (ZOFRAN ODT*) 4 Mg Tab.rapdis 4 MG BC EVERY 6 HOURS PRN for Nausea & Vomiting, #30 TAB 0 Refills Prov: Jose Gomez MD 09/04/18 Referrals: [facility],REFERRING (PCP) Ang Holland MD Patient Instructions: Renal Colic, [id number] Jose Gomez MD Sep 04, 2018 04:26
== END 2018-09-04 00:45 | disposition home or self-care (01) ==
LOC: EMR 22:50
DX: N20.0 Calculus of kidney (principal); R11.2 Nausea with vomiting, unspecified; Z88.8 Allergy status to other drugs, medicaments and biological substances
CPT/HCPCS: 36415; 80053; 81003; 83690; 85025; 87086; 96361; 96374; 99284; J2405

== ENCOUNTER 2018-11-06 19:15 | Emergency (ER) | payer MEDICAID ==
[~2018-11-06] VITALS: Ht 154.9 cm; Wt 72.6 kg
[~2018-11-06 19:15] MED LIST changes: +ACETAMINOPHEN-1 EAC1 ORAL; +FLUCONAZOLE100 MG ORAL; +ONDANSETRON ODT4 MG BC
--- NOTE | 2018-11-06 19:43 | NUR ---
ED Nurse Note: pt walked in c/o left side flank pain radiating to front, pt reports she has hx kidney stone and has been having pain for one month, pt reports she had surgery done recently at different hospital last but hasn't been following up, pt reports she just wants shot of morphine before she sees her doctor tomorrow. pt aa&ox4, gcs=15, skin warm and dry, resp even and unlabored on RA, -n/v/d, ambulates w/ steady gait, will cont monitor. report given to SHANTE Rosario.
[2018-11-06 19:45] VITALS: BP 126/78
[2018-11-06 20:45] VITALS: BP 122/79
[2018-11-06] MEDS ORDERED: Ketorolac 30mg Inj IM ONE (20:45)
--- NOTE | 2018-11-06 20:45 | NUR ---
ER DISCHARGE NOTE: Patient is cleared to be discharged per ERMD, pt is aox4, on room air, with stable vital signs. pt was given dc and prescription instructions, pt was able to verbalize understanding, pt id band removed without complications. pt is able to ambulate with steady gait. pt took all belongings.
--- NOTE | 2018-11-06 20:46 | Emergency Room Report ---
History of Present Illness General Chief Complaint: Pain Source: Patient Present Illness HPI 48-year-old female with history of renal stone and 3 days post renal stone removal and stent placement here complaining of increased pain. Patient is currently on Tylenol 3 and Keflex post surgical treatment of renal stone. Patient is afebrile denying chills, chest pain, nausea vomiting. Patient has been having this flank pain radiating to pubic area for 1 month and is having appointment with her primary care physician tomorrow. Patient has a lab order from her urologist to do KUB and further testing in 2 weeks. She is requesting another prescription for Tylenol 3. Denies chest pain, shortness of breath, palpitation, and all other associated symptoms. Patient is rating the pain 3 out of 10 with radiation into the pubic area Allergies: Coded Allergies: FERROUS SULFATE (Verified Allergy, Unknown, Itching, 11/06/18) GREEN TEA (Verified Allergy, Unknown, 11/06/18) Patient History Past Medical History: see triage record Past Surgical History: unable to obtain Pertinent Family History: none Now: No Immunizations: UTD Reviewed Nursing Documentation: PMH: Agreed; PSxH: Agreed Nursing Documentation-PMH Past Medical History: No History, Except For Hx Gastrointestinal Problems: No - Kidney stones Review of Systems All Other Systems: negative except mentioned in HPI Physical Exam Vital Signs Date Time Temp Pulse Resp B/P (MAP) Pulse Ox O2 Delivery O2 Flow Rate FiO2 11/06/18 19:28 98.6 91 18 126/78 (94) 100 Room Air Sp02 EP Interpretation: reviewed, normal General Appearance: normal inspection, well appearing, no apparent distress Head: normocephalic, atraumatic Eyes: bilateral eye normal inspection, bilateral eye PERRL ENT: normal ENT inspection, hearing grossly normal Neck: normal inspection, full range of motion, supple Respiratory: normal inspection, chest non-tender, lungs clear, no rhonchi Cardiovascular #1: normal inspection, regular rate, rhythm, no gallop, no murmur Gastrointestinal: normal inspection, non tender, soft, non-distended Rectal: deferred Genitourinary: no CVA tenderness Musculoskeletal: normal inspection, back normal, digits/nails normal Neurologic: normal inspection, alert, oriented x3 Psychiatric: normal inspection, judgement/insight normal Skin: normal inspection, normal color, no rash, warm/dry Lymphatic: normal inspection, no adenopathy Medical Decision Making PA Attestation all diagnosis and treatment plans were reviewed and discussed with my supervising physician Dr. Flores Diagnostic Impression: Primary Impression: Post-operative pain Additional Impression: Renal stone ER Course 48-year-old female with history of renal stone and 3 days post renal stone removal and stent placement here complaining of increased pain. Patient is currently on Tylenol 3 and Keflex post surgical treatment of renal stone. Patient is afebrile denying chills, chest pain, nausea vomiting. Patient has been having this flank pain radiating to pubic area for 1 month and is having appointment with her primary care physician tomorrow. Patient has a lab order from her urologist to do KUB and further testing in 2 weeks. She is requesting another prescription for Tylenol 3. Denies chest pain, shortness of breath, palpitation, and all other associated symptoms. Patient is rating the pain 3 out of 10 with radiation into the pubic area Ddx considered but are not limited to: Nephritis, postoperative infection, postoperative pain Vital signs: are WNL, pt. is afebrile H&PE are most consistent with post operative pain ORDERS: UA, toradol ED INTERVENTIONS: toradol 30mg IM DISCHARGE: At this time pt. is stable for d/c to home. Will provide printed patient care instructions, and any necessary prescriptions. Care plan and follow up instructions have been discussed with the patient prior to discharge. Since you have an active prescription for controlled substance we cannot write for more as this is against the law follow-up with her primary care provider for further pain management and with your urologist Last Vital Signs Date Time Temp Pulse Resp B/P (MAP) Pulse Ox O2 Delivery O2 Flow Rate FiO2 11/06/18 19:45 98.6 97 18 126/78 100 Room Air Disposition: HOME, SELF-CARE Condition: Stable Patient Instructions: Kidney Stones, [id number] Additional Instructions: Take medication as it has been present prescribed to you previously we cannot give you any more controlled substance as you currently have an active prescription for it and you still have enough pills left follow-up with the primary care provider and your urologist Betty Brar Nov 06, 2018 20:46
[2018-11-06 21:11] LABS: APPEARANCE,URINE CLEAR; BILIRUBIN, URINE NEGATIVE (NEGATIVE); COLOR,URINE PALE YELLOW; GLUCOSE, URINE (UA) NEGATIVE (NEGATIVE); KETONES,URINE NEGATIVE (NEGATIVE); LEUKOCYTE ESTERASE ,URINE 3+ (NEGATIVE); NITRITE,URINE NEGATIVE (NEGATIVE); PH,URINE 7 (4.5-8.0); PROTEIN,URINE 3+ (NEGATIVE); UROBILINOGEN,URINE NORMAL MG/DL (0.0-1.0)
== END 2018-11-06 20:45 | disposition home or self-care (01) ==
LOC: EMR 20:44
DX: G89.18 Other acute postprocedural pain (principal); N20.0 Calculus of kidney; Z88.2 Allergy status to sulfonamides
CPT/HCPCS: 81001; 96372; 99283; J1885

== ENCOUNTER 2019-02-27 12:27 | Emergency (ER) | payer MEDICAID ==
[~2019-02-27] VITALS: Ht 154.9 cm; Wt 69.9 kg
[2019-02-27 12:45] VITALS: BP 122/77
--- NOTE | 2019-02-27 12:45 | NUR ---
ED Nurse Note: Pt AAOx4, VSS, with no acute distress. pt was seen at urgent care today with hgb fingerstick resulted as 7.9 pt denies rectal bleeding or abd pain. sent in for eval and possible transfusion. Pt is alert, awake with no pain.
[2019-02-27 13:21] LABS: BASOPHILS % (AUTO) 1.2 % (0.0-2.0); EOSINOPHILS % (AUTO) 1.2 % (0.0-3.0); LYMPHOCYTES % (AUTO) 31.6 % (20.0-45.0); MEAN CORPUSCULAR VOLUME 64 FL (80-99); MONOCYTES % (AUTO) 6.8 % (1.0-10.0); NEUTROPHILS % (AUTO) 59.2 % (45.0-75.0); PLATELET COUNT 380 K/UL (150-450); RED BLOOD COUNT 4.37 M/UL (4.20-5.40); RED CELL DISTRIBUTION WIDTH 16.8 % (11.6-14.8); WHITE BLOOD COUNT 6.5 K/UL (4.8-10.8)
[2019-02-27 13:26] LABS: APPEARANCE,URINE SLIGHTLY CLOUDY; BILIRUBIN, URINE NEGATIVE (NEGATIVE); COLOR,URINE PALE YELLOW; GLUCOSE, URINE (UA) NEGATIVE (NEGATIVE); KETONES,URINE 1+ (NEGATIVE); LEUKOCYTE ESTERASE ,URINE 2+ (NEGATIVE); NITRITE,URINE NEGATIVE (NEGATIVE); PH,URINE 6.5 (4.5-8.0); PROTEIN,URINE NEGATIVE (NEGATIVE); UROBILINOGEN,URINE NORMAL MG/DL (0.0-1.0)
[2019-02-27 13:34] LABS: ANION GAP 10 mmol/L (5-15); BLOOD UREA NITROGEN 10 mg/dL (7-18); CALCIUM 9.1 MG/DL (8.5-10.1); CARBON DIOXIDE 24 MMOL/L (21-32); CHLORIDE 105 MMOL/L (98-107); CREATININE 0.7 MG/DL (0.55-1.30); POTASSIUM 4.2 MMOL/L (3.5-5.1); SODIUM 139 MMOL/L (136-145)
[2019-02-27 13:36] LABS: ALANINE AMINOTRANSFERASE 20 U/L (12-78); ALBUMIN 3.8 G/DL (3.4-5.0); ALKALINE PHOSPHATASE 55 U/L (46-116); ASPARTATE AMINO TRANSFERASE 16 U/L (15-37); BILIRUBIN,TOTAL 0.2 MG/DL (0.2-1.0)
[2019-02-27 13:38] LABS: INR 0.9 (0.9-1.1)
--- NOTE | 2019-02-27 14:59 | Emergency Room Report ---
History of Present Illness General Chief Complaint: Abnormal Labs Source: Patient Present Illness HPI 48-year-old female presents ED for evaluation. Patient referred to ED for low hemoglobin. Had labs done today which showed hemoglobin is 7.9. States she has spotting. History of fibroids. Denies any weakness. denies dizziness. Denies any abdominal pain. No other aggravating relieving factors. Denies any other associated symptoms Allergies: Coded Allergies: FERROUS SULFATE (Verified Allergy, Unknown, Itching, 11/06/18) GREEN TEA (Verified Allergy, Unknown, 11/06/18) Patient History Past Medical History: none Past Surgical History: none Pertinent Family History: none Social History: Denies: smoking, alcohol use, drug use Last Menstrual Period: 9-9 Now: No Immunizations: UTD Reviewed Nursing Documentation: PMH: Agreed; PSxH: Agreed Nursing Documentation-PMH Past Medical History: No History, Except For Hx Gastrointestinal Problems: No - Kidney stones, fibroids Review of Systems All Other Systems: negative except mentioned in HPI Physical Exam Vital Signs Date Time Temp Pulse Resp B/P (MAP) Pulse Ox O2 Delivery O2 Flow Rate FiO2 02/27/19 12:33 99.1 77 18 137/81 (99) 100 Room Air Sp02 EP Interpretation: reviewed, normal General Appearance: no apparent distress, alert, GCS 15, non-toxic Head: normocephalic, atraumatic Eyes: bilateral eye normal inspection, bilateral eye PERRL ENT: hearing grossly normal, normal pharynx, no angioedema, normal voice Neck: full range of motion, supple/symm/no masses Respiratory: chest non-tender, lungs clear, normal breath sounds, speaking full sentences Cardiovascular #1: regular rate, rhythm, no edema Cardiovascular #2: 2+ carotid (R), 2+ carotid (L), 2+ radial (R), 2+ radial (L) , 2+ dorsalis pedis (R), 2+ dorsalis pedis (L) Gastrointestinal: normal bowel sounds, non tender, soft, non-distended, no guarding, no rebound Rectal: deferred Genitourinary: normal inspection, no CVA tenderness Musculoskeletal: back normal, gait/station normal, normal range of motion, non- tender Neurologic: alert, oriented x3, responsive, motor strength/tone normal, sensory intact, speech normal Psychiatric: judgement/insight normal, memory normal, mood/affect normal, no suicidal/homicidal ideation Reflexes: 3+ bicep (R), 3+ bicep (L), 3+ tricep (R), 3+ tricep (L), 3+ knee (R) , 3+ knee (L) Lymphatic: no adenopathy Medical Decision Making Diagnostic Impression: Primary Impression: Anemia Qualified Codes: D64.9 - Anemia, unspecified Additional Impression: Fibroids ER Course Hospital Course 48 yo male presents to ED with reportedly low hemoglobin. History of fibroids Differential diagnoses include: anemia requiring transfusion, microcytic anemia , macrocytic anemia, heavy blood loss Clinical course Patient placed on stretcher. After initial history and physical I ordered labs Labs- hemoglobin/hematocrit 01/31. Electrolytes okay, no leukocytosis signed out to Dr Mercado pending disposition Labs Test 02/27/19 12:40 White Blood Count 6.5 K/UL (4.8-10.8) Red Blood Count 4.37 M/UL (4.20-5.40) Hemoglobin 8.0 G/DL (12.0-16.0) Hematocrit 28.0 % (37.0-47.0) Mean Corpuscular Volume 64 FL (80-99) Mean Corpuscular Hemoglobin 18.3 PG (27.0-31.0) Mean Corpuscular Hemoglobin Concent 28.6 G/DL (32.0-36.0) Red Cell Distribution Width 16.8 % (11.6-14.8) Platelet Count 380 K/UL (150-450) Mean Platelet Volume 8.9 FL (6.5-10.1) Neutrophils (%) (Auto) 59.2 % (45.0-75.0) Lymphocytes (%) (Auto) 31.6 % (20.0-45.0) Monocytes (%) (Auto) 6.8 % (1.0-10.0) Eosinophils (%) (Auto) 1.2 % (0.0-3.0) Basophils (%) (Auto) 1.2 % (0.0-2.0) Prothrombin Time 9.7 SEC (9.30-11.50) Prothromb Time International Ratio 0.9 (0.9-1.1) Activated Partial Thromboplast Time 24 SEC (23-33) Urine Color Pale yellow Urine Appearance Slightly cloudy Urine pH 6.5 (4.5-8.0) Urine Specific [place] 1.010 (1.005-1.035) Urine Protein Negative (NEGATIVE) Urine Glucose (UA) Negative (NEGATIVE) Urine Ketones 1+ (NEGATIVE) Urine Blood 1+ (NEGATIVE) Urine Nitrite Negative (NEGATIVE) Urine Bilirubin Negative (NEGATIVE) Urine Urobilinogen Normal MG/DL (0.0-1.0) Urine Leukocyte Esterase 2+ (NEGATIVE) Urine RBC 2-4 /HPF (0 - 2) Urine WBC 2-4 /HPF (0 - 2) Urine Squamous Epithelial Cells Many /LPF (NONE/OCC) Urine Bacteria Moderate /HPF (NONE) Urine HCG, Qualitative Negative (NEGATIVE) Sodium Level 139 MMOL/L (136-145) Potassium Level 4.2 MMOL/L (3.5-5.1) Chloride Level 105 MMOL/L (98-107) Carbon Dioxide Level 24 MMOL/L (21-32) Anion Gap 10 mmol/L (5-15) Blood Urea Nitrogen 10 mg/dL (7-18) Creatinine 0.7 MG/DL (0.55-1.30) Estimat Glomerular Filtration Rate > 60 mL/min (>60) Glucose Level 90 MG/DL (74-106) Calcium Level 9.1 MG/DL (8.5-10.1) Total Bilirubin 0.2 MG/DL (0.2-1.0) Aspartate Amino Transf (AST/SGOT) 16 U/L (15-37) Alanine Aminotransferase (ALT/SGPT) 20 U/L (12-78) Alkaline Phosphatase 55 U/L (46-116) Total Protein 7.6 G/DL (6.4-8.2) Albumin 3.8 G/DL (3.4-5.0) Globulin 3.8 g/dL Albumin/Globulin Ratio 1.0 (1.0-2.7) Last Vital Signs Date Time Temp Pulse Resp B/P (MAP) Pulse Ox O2 Delivery O2 Flow Rate FiO2 02/27/19 12:45 98.6 17 122/77 100 Room Air 02/27/19 12:33 77 Status: improved Signed Out To: Dr Mercado Referrals: NON PHYSICIAN (PCP) Jose Gomez MD Feb 27, 2019 14:59
--- NOTE | 2019-02-27 15:31 | NUR ---
ED Nurse Note: Pt is stable with no acute distress at this time. Pt is asymptomatic.
--- NOTE | 2019-02-27 15:51 | Emergency Room Report ---
Physical Exam Vital Signs Date Time Temp Pulse Resp B/P (MAP) Pulse Ox O2 Delivery O2 Flow Rate FiO2 02/27/19 12:33 99.1 77 18 137/81 (99) 100 Room Air Medical Decision Making Diagnostic Impression: Primary Impression: Anemia Additional Impression: Fibroids ER Course Patient was signed out to me by Dr. Gomez pending transfer for blood transfusion given anemia hemoglobin of 8.0. She has a history of fibroids and noted some intermittent bleeding. Discussed with the patient's emergency care attendant and the physician in recommended outpatient transfusion tomorrow at [facility]. copy coordinator will arrange with the patient. Patient is requesting discharge home at this time to follow-up with her [employer] ATTENDANT, Dr. Flores, and for outpatient transfusion. She is stable, denies headache, lightheadedness, BP is stable and has no complaints at this time. Will discharge for outpatient follow-up. Discussed reasons to return to the emergency department. She understands and agrees with this treatment plan. Laboratory Tests Test 02/27/19 12:40 White Blood Count 6.5 K/UL (4.8-10.8) Red Blood Count 4.37 M/UL (4.20-5.40) Hemoglobin 8.0 G/DL (12.0-16.0) L Hematocrit 28.0 % (37.0-47.0) L Mean Corpuscular Volume 64 FL (80-99) L Mean Corpuscular Hemoglobin 18.3 PG (27.0-31.0) L Mean Corpuscular Hemoglobin Concent 28.6 G/DL (32.0-36.0) L Red Cell Distribution Width 16.8 % (11.6-14.8) H Platelet Count 380 K/UL (150-450) Mean Platelet Volume 8.9 FL (6.5-10.1) Neutrophils (%) (Auto) 59.2 % (45.0-75.0) Lymphocytes (%) (Auto) 31.6 % (20.0-45.0) Monocytes (%) (Auto) 6.8 % (1.0-10.0) Eosinophils (%) (Auto) 1.2 % (0.0-3.0) Basophils (%) (Auto) 1.2 % (0.0-2.0) Prothrombin Time 9.7 SEC (9.30-11.50) Prothrombin Time INR 0.9 (0.9-1.1) PTT 24 SEC (23-33) Urine Color Pale yellow Urine Appearance Slightly cloudy Urine pH 6.5 (4.5-8.0) Urine Specific [place] 1.010 (1.005-1.035) Urine Protein Negative (NEGATIVE) Urine Glucose (UA) Negative (NEGATIVE) Urine Ketones 1+ (NEGATIVE) H Urine Blood 1+ (NEGATIVE) H Urine Nitrite Negative (NEGATIVE) Urine Bilirubin Negative (NEGATIVE) Urine Urobilinogen Normal MG/DL (0.0-1.0) Urine Leukocyte Esterase 2+ (NEGATIVE) H Urine RBC 2-4 /HPF (0 - 2) H Urine WBC 2-4 /HPF (0 - 2) Urine Squamous Epithelial Cells Many /LPF (NONE/OCC) H Urine Bacteria Moderate /HPF (NONE) H Urine HCG, Qualitative Negative (NEGATIVE) Sodium Level 139 MMOL/L (136-145) Potassium Level 4.2 MMOL/L (3.5-5.1) Chloride Level 105 MMOL/L (98-107) Carbon Dioxide Level 24 MMOL/L (21-32) Anion Gap 10 mmol/L (5-15) Blood Urea Nitrogen 10 mg/dL (7-18) Creatinine 0.7 MG/DL (0.55-1.30) Estimate Glomerular Filtration Rate > 60 mL/min (>60) Glucose Level 90 MG/DL (74-106) Calcium Level 9.1 MG/DL (8.5-10.1) Total Bilirubin 0.2 MG/DL (0.2-1.0) Aspartate Amino Transferase (AST) 16 U/L (15-37) Alanine Aminotransferase (ALT) 20 U/L (12-78) Alkaline Phosphatase 55 U/L (46-116) Total Protein 7.6 G/DL (6.4-8.2) Albumin 3.8 G/DL (3.4-5.0) Globulin 3.8 g/dL Albumin/Globulin Ratio 1.0 (1.0-2.7) Last Vital Signs Date Time Temp Pulse Resp B/P (MAP) Pulse Ox O2 Delivery O2 Flow Rate FiO2 02/27/19 12:45 98.6 17 122/77 100 Room Air 02/27/19 12:33 77 Disposition: HOME, SELF-CARE Condition: Stable Referrals: NON PHYSICIAN (PCP) Additional Instructions: He will be called by your case picker to arrange an outpatient transfusion tomorrow at [facility] in [place]. He will also follow-up with your OB/ [facility] and hopefully move the appointment up also set up by your case picker. Please return to emergency department any new or worsening symptoms. Juan M Mercado MD Feb 27, 2019 15:51
[2019-02-27 16:00] VITALS: BP 122/77
--- NOTE | 2019-02-27 16:00 | NUR ---
ER DISCHARGE NOTE: Patient is cleared to be discharged per ERMD, pt is aox4, on room air, with stable vital signs. pt was given dc and prescription instructions, pt was able to verbalize understanding, pt id band and iv site removed without complications. pt is able to ambulate with steady gait. pt took all belongings. Pt is stable and understands to follow up with her MD.
== END 2019-02-27 16:00 | disposition home or self-care (01) ==
LOC: EMR 12:56 → EDBEDREQ 14:29 → EMR 16:00 → CANBEDREQ 16:06
DX: D64.9 Anemia, unspecified (principal); D25.9 Leiomyoma of uterus, unspecified; Z87.442 Personal history of urinary calculi; Z88.2 Allergy status to sulfonamides; Z91.018 Allergy to other foods
CPT/HCPCS: 36415; 80053; 81003; 81025; 85025; 85610; 85730; 86850; 86900; 86901; 87086; Z7502; 99284